=== PATIENT | male | born 2005 | race Caucasian/White ===

== ENCOUNTER 2023-08-11 15:34 | Outpatient (REF) | payer MEDICAID, SELFPAY ==
[2023-08-11 17:28] LABS: MANUAL DIFF FLAG NO
[2023-08-11 17:33] LABS: Basophils Percent Auto 0.5 % (0-2); Eosinophils Absolute Auto 0.1 X10*3/uL (0.0-0.4); Eosinophils Percent Auto 1.5 % (0-4); Hematocrit 50.3 % (42.0-52.0); Hemoglobin 16.5 g/dl (14.0-18.0); Imm Gran Abs Auto 0.02 X10*3/uL (0.00-0.03); Imm Gran Pct Auto 0.2 % (0.0-0.4); Lymphocytes Absolute Auto 2.3 X10*3/uL (1.2-4.9); Mean Corpuscular HGB Conc 32.8 g/dl (31.0-36.0); Mean Corpuscular Hemoglobin 28.6 pg (27.0-33.0); Mean Corpuscular Volume 87.2 fL (80.0-98.0); Mean Platelet Volume 10.9 fL (9.4-12.4); Monocytes Absolute Auto 0.7 X10*3/uL (0.1-1.2); Monocytes Percent Auto 8.9 % (2-11); Neutrophils Absolute Auto 4.9 x10*3/uL (2.0-8.3); Neutrophils Percent Auto 60.9 % (45-73); Platelet Count 459 X10*3/uL (160-400); Red Blood Count 5.77 X10*6/uL (4.60-5.80); Red Cell Distribution Width 13.5 % (11.0-16.0); White Blood Count 8.1 X10*3/uL (4.8-10.8)
[2023-08-11 18:01] LABS: Alanine Aminotransferase 86 U/L (0-40); Albumin Level 4.6 g/dL (3.5-5.0); Alkaline Phosphatase 143 U/L (39-117); Anion Gap 18 (12-20); Aspartate Amino Transferase 28 U/L (5-37); Bilirubin Total 0.4 mg/dL (0.0-1.0); Blood Urea Nitrogen 12 mg/dL (9-16); Calcium 10.2 mg/dL (8.4-10.2); Carbon Dioxide 24 mmol/L (22-29); Chloride 101 mmol/L (96-108); Cholesterol 186 mg/dL (<200); Estimated Glomerular Filt Rate > 60; Glucose Random 91 mg/dL (60-115); HDL Cholesterol 39 mg/dL (>40); LDL Cholesterol Calculated 120 mg/dL (<100); Potassium 4.5 mmol/L (3.3-5.1); Sodium 138 mmol/L (135-145); Total Protein 8.7 g/dL (6.5-8.0); Triglycerides 136 mg/dL (<150)
[2023-08-11 18:08] LABS: Insulin 123 uU/mL (2-29); TSH reflex Free T4 3.82 uIU/mL (0.32-4.0)
[2023-08-12 07:46] LABS: HIV AB/AG Nonreactive (Nonreactive); HIV Num 1 0.11 S/CO (0.00-0.99); ~HepC Num1 0.21 S/CO (0.00-0.79); ~Hepatitis C Antibody Nonreactive (Nonreactive)
== END 2023-08-11 15:35 | disposition home or self-care (01) ==
LOC: HO.CHCLDS 15:34
PROVIDERS: Visit Provider Family Medicine
DX: Z00.00 Encounter for general adult medical examination without abnormal findings (principal); E66.01 Morbid (severe) obesity due to excess calories
CPT/HCPCS: 36415; 80053; 80061; 83525; 84443; 85025; 86803; 87389

== ENCOUNTER 2023-09-05 08:30 | Outpatient (REF) | payer MEDICAID, SELFPAY ==
--- NOTE | ~2023-09-05 | US_ITS ---
EXAMINATION: US ABDOMEN COMPLETE CLINICAL INFORMATION: Transaminitis. COMPARISON: X-ray abdomen 12/08/2014. TECHNIQUE: Real-time imaging of the abdominal viscera. Limited visualization due to bowel gas and body habitus. FINDINGS: PANCREAS: Poorly visualized. ABDOMINAL AORTA: Nonaneurysmal. Limited visualization INFERIOR VENA CAVA: Visualized portions are normal. LIVER: Increased hepatic parenchymal heterogeneity and echogenicity which could be associated with hepatic steatosis or hepatocellular disease and substantially limits visualization. Hepatomegaly, 17.8 cm. Hypoechoic area within the liver adjacent to the main fissure may represent an area of focal sparing within a fatty liver. GALLBLADDER: No gallstones. No gallbladder wall thickening. COMMON BILE DUCT: Normal in caliber measuring 0.4 cm in diameter. RIGHT KIDNEY: No hydronephrosis. No renal calculi. Limited visualization. The kidney measures 12.3 cm in maximum dimension. LEFT KIDNEY: No hydronephrosis. No renal calculi. Limited visualization. The kidney measures 11.6 cm in maximum dimension. SPLEEN: Normal. The spleen measures 11.0 cm in maximum dimension. FREE FLUID: None. US/US abdomen complete IMPRESSION: Increased hepatic parenchymal heterogeneity and echogenicity which could be associated with hepatic steatosis or hepatocellular disease and substantially limits visualization. Hepatomegaly, 17.8 cm. Hypoechoic area within the liver adjacent to the main fissure may represent an area of focal sparing within a fatty liver.
== END 2023-09-05 08:31 | disposition home or self-care (01) ==
LOC: HO.US 08:30
PROVIDERS: PCP Family Medicine; Visit Provider Family Medicine
DX: R74.01 Elevation of levels of liver transaminase levels (principal)
CPT/HCPCS: 76700

== ENCOUNTER 2024-01-06 09:46 | Outpatient (AMB) | payer MEDICAID, SELFPAY ==
--- NOTE | 2024-01-06 10:06 | A.OFFVIS_ITS ---
Intake Vital Signs 01/06/24 10:23 Height 5 ft 11 in Weight 340 lb BMI 47.4 BP 144/80 H Blood Pressure Location Rt brachial Position Sitting Pulse 94 Pulse Source Pulse Oximeter Pulse Oximetry (%) 98 Oxygen Delivery Method Room Air Intake Visit Reasons: New Pt DAVEY - CONF w/address Intake Note: Patient presents for DAVEY. Allergies No Known Allergies [No Known Allergies*] Allergy (Verified 01/06/24 10:13) HPI HPI Comments History of Present Illness Details 18 y/o male patient presents for new in- person visit to manage sleep apnea. He was diagnosed with sleep apnea about 2 years ago, but not treated with CPAP. Pt reports loud snoring, gasping arousals, and daytime sleepiness. He has difficulty sleeping, takes trazodone 50 mg qHS. Sleep questionnaire: Have you ever been diagnosed with a sleep disorder? Yes, DAVEY Have you ever had a sleep study in the past? Yes. Have you ever been treated for a sleep disorder? No. Do you take medications for a sleep disorder? Yes, trazodone 50 mg. Do you snore? Yes. Do you wake up gasping at night? Yes. Do you have episodes of apneas? Yes. If yes, are they witnessed? Yes. Do you have episodes of nocturnal chest pain or dyspnea? No. Do you have difficulty initiating sleep? Yes. Do you have difficulty maintaining sleep? No. Do you wake up tired? Yes. Do you have headaches upon awakening? No. Do you wake up with dry mouth or throat? Yes. Do you have GERD? No. Do you have nocturia? Yes. Do you have nocturnal leg cramps? No. Do you have symptoms of restless legs? No. Do you act out your dreams? No. Sleep hygiene questionnaire: What is your usual sleep routine? Usual bedtime is at 11 am; Usual wake up time is at 8 am. Do you take naps? Yes, sometimes. Is your sleep environment cool, dark, and quiet? Yes. Do you exercise? No. Do you take caffeine or other stimulants? Yes, pepsi and coffee throughout the day. Do you use electronics in bed? Yes. What is your work schedule? N/A. Hypersomnolence questionnaire: Do you have daytime tiredness or fatigue? Yes. Do you easily fall asleep when inactive? Yes. Have you ever had episodes of sudden weakness? No. Have you ever had episodes of sudden weakness associated with strong emotions? No. PFSH Surgical History (Updated 01/06/24 @ 10:18 by Kyara Ashton CMA) History of surgical removal of testicle Family History Father Diabetes Borderline high blood pressure Asthma Mother Asthma Borderline high blood pressure Arthritis Sleep apnea Social History (Updated 01/06/24 @ 10:23 by Kyara Ashton CMA) Household Members: Family Housing: House Alcohol intake: never Patient Tobacco Use Status: Never used Tobacco Review of Systems Const All systems reviewed & are unremarkable except as noted in HPI and below Physical Exam Vital Signs: Last Vital Signs Pulse 94 01/06/24 10:23 BP 144/80 H 01/06/24 10:23 Pulse Ox 98 01/06/24 10:23 Oxygen Delivery Method Room Air 01/06/24 10:23 BMI result Body Mass Index 47.4 Const General: cooperative and tired appearing Nutritional Appearance: obese Orientation/consciousness: patient oriented x3 Neck Neck: Yes full ROM and Yes supple Resp Effort & Inspection: normal respiratory effort and able to speak in complete sentences Neuro General: patient oriented x3 and gait normal Cranial nerves: Yes CN's II-XII intact bilaterally Cognition (Neuro): normal cognition Gait exam (Neuro): Normal gait present Motor exam (neuro): 5/5 motor strength present throughout Psych Appearance: grossly normal Mental Status: mental status grossly normal Speech and movement: Normal speech and movement present Affect: normal affect Attitude: cooperative Assessment & Plan Assessment & Plan (1) Sleep apnea: Code(s): G47.30 - Sleep apnea, unspecified (2) Obesity, Class III, BMI 40-49.9 (morbid obesity): Code(s): E66.01 - Morbid (severe) obesity due to excess calories (3) Daytime sleepiness: Code(s): R40.0 - Somnolence Plan Pt is advised to undergo in lab sleep study to assess for sleep apnea. Will f/u with pt after study to discuss results and appropriate treatment options. Sleep hygiene education provided. Limit caffeine intake in the evening, and electronic use before bedtime. Wt reduction adivsed. Pt to call with any worsening concerns or questions. Orders: Orders RT PSG in-lab sleep study Today E66.01 - Morbid (severe) obesity due to excess calories, G47.30 - Sleep apnea, unspecified, I10 - Essential (primary) hypertension, R40.0 - Somnolence Coding Level of Care Code New Pt Level 3 (58792) Diagnoses Sleep apnea G47.30 Obesity, Class III, BMI 40-49.9 (morbid obesity) E66.01 Daytime sleepiness R40.0
[2024-01-06 10:23] VITALS: BP 144/80; PULSE 94; O2SAT 98; BMI 47.4
== END 2024-01-06 11:06 | disposition home or self-care (01) ==
PROVIDERS: PCP Family Medicine; Visit Provider Nurse Practitioner Family
DX: G47.30 Sleep apnea, unspecified (principal); E66.01 Morbid (severe) obesity due to excess calories; R40.0 Somnolence
CPT/HCPCS: 99203

== ENCOUNTER → 2024-01-06 09:46 | Outpatient (BNVA) | payer MEDICAID, SELFPAY | PROVIDERS: PCP Family Medicine; Visit Provider Nurse Practitioner Family | DX: G47.30 Sleep apnea, unspecified (principal); R40.0 Somnolence; E66.01 Morbid (severe) obesity due to excess calories; Z68.42 Body mass index [BMI] 45.0-49.9, adult | CPT/HCPCS: 99212 ==

== ENCOUNTER → 2024-02-26 20:30 | Outpatient (REF) | payer MEDICAID, SELFPAY | LOC: HO.SL 20:30 | PROVIDERS: PCP Family Medicine; Visit Provider Nurse Practitioner Family | DX: G47.33 Obstructive sleep apnea (adult) (pediatric) (principal); I10 Essential (primary) hypertension; R40.0 Somnolence; E66.01 Morbid (severe) obesity due to excess calories | CPT/HCPCS: 95810 ==

== ENCOUNTER → 2024-02-26 22:45 | Outpatient (BNV) | payer MEDICAID, SELFPAY | PROVIDERS: PCP Family Medicine; Visit Provider Psychiatry & Neurology Neurology | DX: R06.83 Snoring (principal); R40.0 Somnolence | CPT/HCPCS: 95810 ==

== ENCOUNTER → 2024-03-26 20:30 | Outpatient (REF) | payer MEDICAID, SELFPAY | LOC: HO.SL 20:30 | PROVIDERS: PCP Family Medicine; Visit Provider Nurse Practitioner Family | DX: G47.33 Obstructive sleep apnea (adult) (pediatric) (principal); E66.01 Morbid (severe) obesity due to excess calories | CPT/HCPCS: 95811 ==

== ENCOUNTER 2024-05-20 09:23 | Outpatient (AMB) | payer MEDICAID, SELFPAY ==
--- NOTE | 2024-05-20 09:37 | A.OFFVIS_ITS ---
Vital Signs 05/20/24 09:42 Height 5 ft 11 in Weight 323 lb 2 oz BMI 45.1 BP 140/90 H Blood Pressure Location Rt brachial Position Sitting Respiration 17 Pulse 99 Pulse Source Pulse Oximeter Pulse Oximetry (%) 97 Oxygen Delivery Method Room Air Intake Visit Reasons: f/u for DAVEY - Confirmed Intake Note: Pt presents for 4 month follow up for sleep apnea. Business [employer] Required: No Allergies No Known Allergies [No Known Allergies*] Allergy (Verified 05/20/24 09:42) HPI Comments Details: 18 y/o male patient presents for follow up . His recent sleep study is significant for moderate degree of sleep apnea with increased severity in REM. AHI 20/hr REM AHI 45/hr lowest O2 at 82 %. Pt reports loud snoring, gasping arousals, and daytime sleepiness. He has difficulty sleeping, takes trazodone 50 mg qHS. PFSH Surgical History History of surgical removal of testicle Family History Father Diabetes Borderline high blood pressure Asthma Mother Asthma Borderline high blood pressure Arthritis Sleep apnea Social History Household Members: Family Housing: House Alcohol intake: never Patient Tobacco Use Status: Never used Tobacco Physical Exam Vital Signs: Last Vital Signs Pulse 99 05/20/24 09:42 Resp 17 05/20/24 09:42 BP 140/90 H 05/20/24 09:42 Pulse Ox 97 05/20/24 09:42 Oxygen Delivery Method Room Air 05/20/24 09:42 BMI result Body Mass Index 45.1 Const General: cooperative and tired appearing Nutritional Appearance: obese Orientation/consciousness: patient oriented x3 Neck Neck: Yes full ROM and Yes supple Resp Effort & Inspection: normal respiratory effort and able to speak in complete sentences Neuro General: patient oriented x3 and gait normal Cranial nerves: Yes CN's II-XII intact bilaterally Cognition (Neuro): normal cognition Gait exam (Neuro): Normal gait present Motor exam (neuro): 5/5 motor strength present throughout Psych Appearance: grossly normal Mental Status: mental status grossly normal Speech and movement: Normal speech and movement present Affect: normal affect Attitude: cooperative Assessment & Plan Assessment & Plan (1) Moderate obstructive sleep apnea: Comment: AHI 20/hr REM AHI 45/hr and oxygen sukh 82% Code(s): G47.33 - Obstructive sleep apnea (adult) (pediatric) Category: Medical Plan Trial patient on AUtoPAP 5-20 cm of water and follow up to ensure compliance and therapy response. Discussed PSG results in detail Coding Level of Care Code Est Pt Level 4 (16218) Diagnoses Moderate obstructive sleep apnea G47.33
[2024-05-20 09:42] VITALS: BP 140/90; PULSE 99; RESP 17; O2SAT 97; BMI 45.1
== END 2024-05-20 09:58 | disposition home or self-care (01) ==
PROVIDERS: PCP Family Medicine; Visit Provider Psychiatry & Neurology Neurology
DX: G47.33 Obstructive sleep apnea (adult) (pediatric) (principal)
CPT/HCPCS: 99214

== ENCOUNTER → 2024-05-20 09:23 | Outpatient (BNVA) | payer MEDICAID, SELFPAY | PROVIDERS: PCP Family Medicine; Visit Provider Psychiatry & Neurology Neurology | DX: G47.33 Obstructive sleep apnea (adult) (pediatric) (principal) | CPT/HCPCS: 99212 ==

== ENCOUNTER 2024-06-21 16:18 | Outpatient (REF) | payer MEDICAID, SELFPAY ==
[2024-06-21 18:37] LABS: Influenza A PCR NEGATIVE (Negative); Influenza B PCR NEGATIVE (Negative); Resp Syncy Virus RNA Qual PCR NEGATIVE (Negative); SARS COV2 PCR INHOUSE NEGATIVE (Negative)
== END 2024-06-21 16:19 | disposition home or self-care (01) ==
LOC: HO.CHCLNP 16:18
PROVIDERS: Visit Provider Family Medicine
DX: J06.9 Acute upper respiratory infection, unspecified (principal)
CPT/HCPCS: 0241U

== ENCOUNTER 2024-08-16 14:34 | Outpatient (REF) | payer MEDICAID, SELFPAY ==
[2024-08-16 16:36] LABS: CT PCR NOT DETECTED (Not Detect.); NG PCR NOT DETECTED (Not Detect.)
== END 2024-08-16 14:35 | disposition home or self-care (01) ==
LOC: HO.CHCLNP 14:34
PROVIDERS: Visit Provider Family Medicine
DX: Z00.00 Encounter for general adult medical examination without abnormal findings (principal); Z11.3 Encounter for screening for infections with a predominantly sexual mode of transmission
CPT/HCPCS: 87491; 87591

== ENCOUNTER 2025-04-04 10:48 | Outpatient (REF) | payer MEDICAID, SELFPAY ==
[2025-04-04 14:24] LABS: MANUAL DIFF FLAG NO
[2025-04-04 14:31] LABS: Basophils Percent Auto 0.4 % (0-2); Eosinophils Absolute Auto 0.2 X10*3/uL (0.0-0.4); Hematocrit 47.8 % (42.0-52.0); Hemoglobin 15.9 g/dl (14.0-18.0); Imm Gran Abs Auto 0.02 X10*3/uL (0.00-0.03); Imm Gran Pct Auto 0.3 % (0.0-0.4); Lymphocytes Absolute Auto 2.9 X10*3/uL (1.2-4.9); Lymphocytes Percent Auto 36.1 % (20-40); Mean Corpuscular HGB Conc 33.3 g/dl (31.0-36.0); Mean Corpuscular Hemoglobin 29.6 pg (27.0-33.0); Mean Corpuscular Volume 88.8 fL (80.0-98.0); Mean Platelet Volume 10.4 fL (9.4-12.4); Monocytes Absolute Auto 0.7 X10*3/uL (0.1-1.2); Neutrophils Absolute Auto 4.2 x10*3/uL (2.0-8.3); Neutrophils Percent Auto 52.2 % (45-73); Platelet Count 399 X10*3/uL (160-400); Red Blood Count 5.38 X10*6/uL (4.60-5.80)
[2025-04-04 14:45] LABS: Estimated Average Glucose 85 mg/dL; Hemoglobin A1c % 4.6 % (<6.0)
[2025-04-04 15:10] LABS: Alanine Aminotransferase 53 U/L (0-40); Albumin Level 4.8 g/dL (3.5-5.0); Alkaline Phosphatase 116 U/L (39-117); Anion Gap 10 (12-20); Aspartate Amino Transferase 27 U/L (5-37); Bilirubin Total 0.5 mg/dL (0.0-1.0); Blood Urea Nitrogen 18 mg/dL (9-16); Calcium 9.9 mg/dL (8.4-10.2); Carbon Dioxide 29 mmol/L (22-29); Chloride 104 mmol/L (96-108); Estimated Glomerular Filt Rate > 60; Glucose Random 80 mg/dL (60-115); Iron 98 mcg/dL (45-160); Magnesium 2.1 mg/dL (1.6-2.6); Percent Iron Saturation 35 % (15-50); Potassium 4.4 mmol/L (3.3-5.1); Sodium 139 mmol/L (135-145); Total Iron Binding Capacity 279 mcg/dL (228-428); Total Protein 8.6 g/dL (6.5-8.0); Unsaturated Iron Binding 181 ug/dL
[2025-04-04 15:14] LABS: Folate 7.5 ng/mL (> or = 4.0); Vitamin B12 407 pg/mL (200-900)
[2025-04-04 15:16] LABS: Ferritin 217 ng/mL (20-250); Vitamin D 25-OH Total 44.3 ng/mL (>30)
[2025-04-05 08:08] LABS: HBS Num1 1.81 mIU/mL (0-7.99); HBc Num1 0.13 S/CO (0.00-0.79); HBsAGNum1 0.51 S/CO (0.00-0.99); Hepatitis B Core Antibody Nonreactive (Nonreactive); Hepatitis B Surface Antigen Negative (Negative); ~HepC Num1 0.32 S/CO (0.00-0.79); ~Hepatitis A Antibody IgM Nonreactive (Nonreactive); ~Hepatitis B Surface Antibody NONREACTIVE (Nonreactive); ~Hepatitis C Antibody Nonreactive (Nonreactive)
== END 2025-04-04 10:49 | disposition home or self-care (01) ==
LOC: HO.CHCLDS 10:48
PROVIDERS: Visit Provider Family Medicine
DX: R74.01 Elevation of levels of liver transaminase levels (principal); Z51.81 Encounter for therapeutic drug level monitoring; E66.01 Morbid (severe) obesity due to excess calories
CPT/HCPCS: 36415; 80053; 82306; 82607; 82728; 82746; 83036; 83540; 83735; 85025; 86704; 86706; 86709; 86803; 87340